=== PATIENT | male | born 1975 | race Two or more races ===

== ENCOUNTER 2025-03-07 20:30 | Emergency (ER) | payer MEDICAID, SELFPAY ==
[2025-03-07 20:33] VITALS: BMI 28.4
[2025-03-07 20:58] VITALS: BP 152/82; PULSE 67; RESP 19; TEMP 37.3; O2SAT 99
--- NOTE | 2025-03-07 21:14 | XR_ITS ---
Examination: Duplex scan of the lower extremity, unilateral left Date and time of exam: March 07, 2025 1041 hours INDICATIONS: Left lower leg swelling and pain beginning 8 days ago Technique: Duplex scan of the extremity veins using B-mode/grayscale imaging and Doppler spectral analysis and color flow Attention is directed to internal echogenicity, compression and augmentation involving these veins, color flow assessment, spectral analysis Findings: Major deep venous structures in the extremity demonstrate normal course and caliber. There is no evidence of deep vein thrombosis. Normal color flow and spectral analysis Impression: Negative for DVT..
--- NOTE | 2025-03-07 21:15 | PD.EDLOWEX ---
Lower Extremity Injury RME/HPI General Chief Complaint: Extremity Injury, Lower Stated Complaint: INJURY TO L CALF AREA Time Seen by Provider: 03/07/25 20:37 Arrival date/time: 03/07/25 20:30 RME / HPI RME / HPI Narrative: 49-year-old male patient came in for evaluation regarding left leg swelling. Patient injury sustained about 7 days prior to ER visit patient was seen on something and suddenly felt pain to the left calf muscle. Seen by PCP, and was prescribed muscle relaxant and Motrin. Family is concerned because patient started to have swelling to the leg. Patient is currently taking Plavix and aspirin for CAD status post stent. Denies any chest pain denies any shortness of breath Related Data Home Medications ?Medication ?Instructions ?Recorded ?Confirmed ezetimibe 10 mg tablet 10 mg PO QDAY 08/02/21 08/02/21 Previous Rx's ?Medication ?Instructions ?Recorded aspirin 81 mg tablet,delayed 81 mg PO QDAY #30 tabs 05/07/21 release atorvastatin 80 mg tablet 80 mg PO QPM #30 tabs 05/07/21 clopidogrel 75 mg tablet 75 mg PO QDAY #30 tabs 05/07/21 Allergies Allergy/AdvReac Type Severity Reaction Status Date / Time No Known Allergies Allergy Verified 03/07/25 20:37 Review of Systems Review of Systems Narrative Review of Systems: Review of system reviewed and within normal limits except mentioned in HPI ED Exam Narrative Physical exam: VITAL SIGNS: Reviewed. GENERAL APPEARANCE: Alert and interactive, follows commands, no acute distress, HEAD AND FACE: Non-traumatic. ENT: PERRL, pink conjunctivitis, eyelid no trauma, Mucous membrane moist. NECK: Supple, nontender, no nuchal rigidity. CHEST: No tenderness, no crepitus, no paradoxical movement, no retractions. LUNGS: Clear, well ventilated, symmetric, no rales, no wheezing, no ronchi, no stridor, good breath sounds bilaterally. HEART: Regular rate, regular rhythm, no murmur, no gallops. ABDOMEN: Soft, positive bowel sounds, nondistended, no guarding, nontender, no rebound, no masses, RECTAL: Deferred. GENITAL: Deferred. NEUROLOGICAL: Gross motor function intact sensory function intact, Appropriate for age. MUSCULOSKELETAL: low back nontender, full range of motion. EXTREMITIES: Left lower leg swelling, with tenderness on the medial aspect, more on the calf muscle no gap palpated noted on the Achilles tendon. Full range of motion. Distal neurovascular status intact SKIN: Color pink, dry, no rash, no lacerations, no abrasions, no contusions. LYMPHATICS: Deferred. Course Quality Measures none Orders Category Date Time Status US venous doppler LE LT Stat Exams 03/07/25 21:14 Taken Vital Signs Vital signs: Vital Signs Temperature 99.2 F 03/07/25 20:58 Pulse Rate 67 03/07/25 20:58 Respiratory Rate 19 03/07/25 20:58 Blood Pressure 152/82 H 03/07/25 20:58 Pulse Oximetry (%) 99 03/07/25 20:58 Oxygen Delivery Method Room Air 03/07/25 20:58 Extremity Injury, Lower MDM Narrative MDM Narrative:: 49-year-old male patient came in for evaluation regarding left leg swelling. Patient injury sustained about 7 days prior to ER visit patient was seen on something and suddenly felt pain to the left calf muscle. Seen by PCP, and was prescribed muscle relaxant and Motrin. Family is concerned because patient started to have swelling to the leg. Patient is currently taking Plavix and aspirin for CAD status post stent. Denies any chest pain denies any shortness of breath Ultrasound left lower extremity is negative for DVT. Results discussed with the patient. Patient data External records reviewed:: None Clinical information provided by:: patient and family Social determinants that could affect healthcare access:: none Patient has the following chronic illnesses:: CAD, How is presenting disease/condition affected by chronic disease/condition?: exacerbated by Evaluation data The following diagnostics were reviewed and interpreted by me:: radiology exam(s) Lab and/or radiology exams considered but not ordered:: None Interpretation Summary: See results MDM Medications / Prescriptions Medications or Prescriptions considered but not ordered:: None Medication administrations:: None Consultations Consultation(s) initiated? (list below): No Diagnosis Extremity Injury, Lower Differential Diagnosis: other (Leg swelling, muscle strain lower extremity, DVT) Most likely diagnosis given after review of the tests above:: Muscle strain lower extremity Admission Indicated Admission indicated?: not indicated Admission Request Was there a request for admission?: No Disposition Plan Disposition Plan: Discharge Discharge Attestation Discharge Attestation: The patient and all family members were given an opportunity to ask questions and understood the discharge instructions. Discharge instructions specifically effects, indications for sooner follow up or return to the emergency department, and the expected course of current diagnosis. Patient condition: Stable Discharge Plan Plan Patient Disposition: HOME (Self Care) Discharge Disposition comment: Stable Prescriptions/Referrals Prescriptions/Med Rec: No Action ezetimibe 10 mg Tablet 10 mg PO QDAY atorvastatin 80 mg tablet 80 mg PO QPM Qty: 30 2RF clopidogrel 75 mg tablet 75 mg PO QDAY Qty: 30 2RF aspirin 81 mg tablet,delayed release (DR/EC) 81 mg PO QDAY Qty: 30 2RF Referrals: Solis Hernandez PA-C [Primary Care Provider] - In 1 week Problem List Clinical Impression: Muscle strain of left lower leg Patient/Caregiver Discharge Instructions Discharge Activity: activity as tolerated Education Materials: ED Muscle Strain, Extremity Additional Instructions: Thank you for the opportunity for serving you today. You are stable for discharged . You are advised to: Follow-up with your PCP in 1 to 2 days Return to ED for worsening of symptoms Increase oral fluids Elevate your legs if you are resting, wear elastic stocking in the morning and remove it during the afternoon Your ultrasound today did not show any blood clots Print Language: Spanish Stand Alone Forms: Jordana Award Info., Patient Portal Info Letter RASHEL/ARIS Supervising Physician PA/ARIS Supervising Physician: MD Leonor
[2025-03-07 23:20] VITALS: BP 152/78; PULSE 54; RESP 16; O2SAT 100
== END 2025-03-07 23:21 | disposition home or self-care (01) ==
PROVIDERS: Emergency Provider Emergency Medicine; PCP Physician Assistant
DX: S86.912A Strain of unspecified muscle(s) and tendon(s) at lower leg level, left leg, initial encounter (principal); X58.XXXA Exposure to other specified factors, initial encounter
CPT/HCPCS: 93971; 99282